=== PATIENT | male | born 1980 | race Caucasian/White ===

== ENCOUNTER 2020-01-01 18:21 | Emergency (ER) | payer SELFPAY ==
[~2020-01-01] VITALS: Ht 152.4 cm; Wt 70.3 kg
[2020-01-01 18:26] VITALS: BP_SYST 139
[2020-01-01 18:39] VITALS: BP_SYST 139
== END 2020-01-01 18:39 ==
LOC: SED 18:21
DX: S00.03XA Contusion of scalp, initial encounter (principal); F10.10 Alcohol abuse, uncomplicated; Y90.9 Presence of alcohol in blood, level not specified; Y00.XXXA Assault by blunt object, initial encounter; Y93.89 Activity, other specified; Y92.89 Other specified places as the place of occurrence of the external cause; Y99.8 Other external cause status
CPT/HCPCS: 99283